=== PATIENT | male | born 1965 | race Two or more races ===

== ENCOUNTER 2022-04-24 06:45 | Day surgery (SDC) | payer OTHER ==
[~2022-04-24] VITALS: Ht 177.8 cm; Wt 83.9 kg
[~2022-04-24 06:45] MED LIST: CRESTOR20 MG PO
[2022-04-24] MEDS ORDERED: OXYC1TAB9 PO (10:53)
== END 2022-04-24 14:20 | disposition home or self-care (01) ==
LOC: CIR.AMB 06:45
PROVIDERS: ATTEND Surgery
DX: K62.89 Other specified diseases of anus and rectum (principal); D12.7 Benign neoplasm of rectosigmoid junction; E78.00 Pure hypercholesterolemia, unspecified; Z86.16 Personal history of COVID-19